=== PATIENT | female | born 1965 | race Two or more races ===

== ENCOUNTER → 2021-06-11 | Outpatient (CLI) | payer BC, OTHER ==
[2021-06-11 18:27] LABS: Basophils # (A) 0.03 X 10*3/uL (0.00-0.10); Basophils % (A) 0.5 %; Eosinophils % (A) 1.7 %; HCT 44.6 % (37.2-46.3); HGB 14.3 g/dL (12.0-15.0); Immature Grans, Automated 0.5 %; Lymphocytes # (A) 1.72 X 10*3/uL (0.90-5.00); Lymphocytes % (A) 29.7 %; MCH 31.7 pg (27.0-32.0); MCHC 32.1 g/dL (32.0-37.0); MCV 98.9 fL (80.0-97.0); Mean Platelet Volume 10.8 fL (9.5-12.2); Monocytes # (A) 0.52 X 10*3/uL (0.20-1.00); NRBC Per 100 WBC 0 /100 WBCS (0.0-0.0); Neutrophils % (A) 58.6 %; Platelet Count 289 X 10*3/uL (140-440); RBC 4.51 X 10*6/uL (4.10-5.20); RDW 11.3 % (11.5-14.5)
[2021-06-11 20:32] LABS: African American GFR (CKD) 125.4 (60.0-200.0); Anion Gap 11.6 mmol/L (10.00-18.00); Blood Urea Nitrogen 13.1 mg/dL (9.0-27.0); Carbon Dioxide 25.4 mmol/L (20.0-27.5); Non-African American GFR(CKD) 108.2 (60.0-200.0); Potassium 4.2 mmol/L (3.5-5.5)
== END | disposition home or self-care (01) ==
LOC: LABPAT 13:30
PROVIDERS: ATTEND Obstetrics & Gynecology Obstetrics
DX: Z01.812 Encounter for preprocedural laboratory examination (principal); Z01.818 Encounter for other preprocedural examination; N85.2 Hypertrophy of uterus; D25.9 Leiomyoma of uterus, unspecified
CPT/HCPCS: 36415; 80051; 82565; 82947; 84520; 85025; 87086

== ENCOUNTER → 2021-07-03 | Outpatient (CLI) | payer BC ==
[2021-07-03 16:15] LABS: African American GFR (CKD) 119.4 (60.0-200.0); Anion Gap 7.5 mmol/L (10.00-18.00); Blood Urea Nitrogen 10.5 mg/dL (9.0-27.0); Carbon Dioxide 26.2 mmol/L (20.0-27.5); Potassium 4.2 mmol/L (3.5-5.5)
[2021-07-03 16:17] LABS: Basophils # (A) 0.03 X 10*3/uL (0.00-0.10); Basophils % (A) 0.7 %; Eosinophils # (A) 0.09 X 10*3/uL (0.04-0.35); Eosinophils % (A) 2.1 %; HCT 41.6 % (37.2-46.3); HGB 13.2 g/dL (12.0-15.0); Immature Grans, Automated 0.5 %; Lymphocytes # (A) 1.55 X 10*3/uL (0.90-5.00); Lymphocytes % (A) 36.6 %; MCH 31.2 pg (27.0-32.0); MCHC 31.7 g/dL (32.0-37.0); MCV 98.3 fL (80.0-97.0); Mean Platelet Volume 10.8 fL (9.5-12.2); Monocytes # (A) 0.37 X 10*3/uL (0.20-1.00); Monocytes % (A) 8.7 %; NRBC Per 100 WBC 0 /100 WBCS (0.0-0.0); Neutrophils # (A) 2.18 X 10*3/uL (1.80-7.70); Neutrophils % (A) 51.4 %; Platelet Count 282 X 10*3/uL (140-440); RBC 4.23 X 10*6/uL (4.10-5.20); RDW 11.3 % (11.5-14.5); WBC 4.24 X 10*3/uL (4.50-10.00)
== END | disposition home or self-care (01) ==
LOC: LABPAT 08:52
PROVIDERS: ATTEND Obstetrics & Gynecology Obstetrics
DX: Z01.812 Encounter for preprocedural laboratory examination (principal); D25.9 Leiomyoma of uterus, unspecified
CPT/HCPCS: 80051; 82565; 82947; 84520; 85025; 87086

== ENCOUNTER 2021-07-13 05:45 | Day surgery (SDC) | payer BC ==
[2021-06-18 09:18] VITALS: BMI 23.8
--- NOTE | 2021-07-12 17:37 | HP ---
HISTORY AND PHYSICAL DATE OF SURGERY: 07/13/2021 HISTORY OF PRESENT ILLNESS: This is a 56-year-old G1, P1 non- female who presents with known enlarged fibroid uterus. The patient has a history of a myomectomy and then a with the of her daughter. The patient notes increasing back pain and abdominal pain. She is postmenopausal since 2018. Patient elects definitive treatment with hysterectomy at this time. PAST MEDICAL HISTORY: No known medical conditions. PAST SURGICAL HISTORY: Significant for a myomectomy and . ALLERGIES: NO KNOWN DRUG ALLERGIES. FAMILY MEDICAL HISTORY: Noncontributory. 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 SOCIAL HISTORY: She is a nonsmoker and is . REVIEW OF SYSTEMS: She denies fevers, chills, nausea, vomiting, urinary urgency, frequency, dysuria or dyspareunia. She does note back pain and pelvic pain. She denies any postmenopausal bleeding symptoms. PHYSICAL EXAMINATION: Vital signs are noted to be stable. GENERAL: This is a well-nourished, well-developed, non- female in no acute distress. Some language barrier is appreciated on history-taking. Her lungs are noted to be clear to auscultation. Her heart has a regular rate and rhythm. ABDOMEN: Soft with an enlarged uterus palpated. On pelvic exam, external genitalia is noted to be normal for age. No masses are appreciated. Vaginal genitalia are noted to be pale and consistent with postmenopause. Cervix is without lesion. Uterus is noted to be enlarged but mobile. ASSESSMENT: Uterine fibroids. Enlarged uterus is noted, 14 to 15 cm, with largest fibroid measuring 4.5 cm. Patient does desire definitive treatment. PLAN: Robotic-assisted vaginal hysterectomy with bilateral salpingo-oophorectomy, diagnostic cystoscopy, possible LELAND to complete procedure. Risks are reviewed with the patient, including but not limited to infection, bleeding, damage to bladder, bowel, ureteric injury, given the size of the uterus. The patient states understanding and wishes to proceed. The patient is with her , who is [place]ian-speaking, so all consent was performed. Will proceed with robotic-assisted vaginal hysterectomy, bilateral salpingo- oophorectomy, diagnostic cystoscopy, possible open to complete procedure. MMODL / IJN: [id number] /
[~2021-07-13 05:45] MED LIST: ACETAMINOPHEN IV (For NPO) 1,000 MG in EMPTY BAG 1 BAG IVPB PRN
[2021-07-13] MEDS ORDERED: HYDROmorphone 0.5 MG/0.5 ML SYRINGE IVP PRN (05:46)
[2021-07-13] MEDS ORDERED: MIDAZOLAM 2 MG/2 ML VIAL IV PRN (05:46)
[2021-07-13] MEDS ORDERED: ONDANSETRON 4 MG/2 ML VIAL IVP ONE (05:46)
[2021-07-13] MEDS ORDERED: LIDOCAINE 1% (10MG/ML) FOR IV START INTRADERMA PRN (05:46)
[2021-07-13] MEDS ORDERED: DEXAMETHASONE SOD PHOSPHATE 4 MG/ML 1 ML VIAL IV ONE (05:46)
[2021-07-13] MEDS: LACTATED RINGERS 1,000 ML IV SCH (06:30)
[2021-07-13] MEDS: ACETAMINOPHEN IV (For NPO) 1,000 MG in EMPTY BAG 1 BAG IVPB PRN ×2 (07:00→15:49)
[2021-07-13] MEDS ORDERED: fentaNYL (PF) 50 MCG/ML 2 ML AMP ONE (07:36)
[2021-07-13] MEDS ORDERED: ROCURONIUM 10 MG/ML (5 ML VIAL) IV ONE (07:36)
[2021-07-13] MEDS ORDERED: LIDOCAINE 4% LTA KIT (4 ML) TOPICAL ONE (07:36)
[2021-07-13] MEDS ORDERED: PROPOFOL 10 MG/ML 20 ML VIAL IV ONE (07:36)
[2021-07-13] MEDS ORDERED: ePHEDrine 50 MG/ML 1 ML VIAL ONE (07:36)
[2021-07-13] MEDS ORDERED: NEOSTIGMINE 1 MG/ML 10 ML VIAL ONE (07:36)
[2021-07-13] MEDS ORDERED: LIDOCAINE 2% INJ 20 MG/ML (2 ML VIAL) ONE (07:36)
[2021-07-13] MEDS ORDERED: HYDROmorphone (PF) 1 MG/ML ONE (07:36)
[2021-07-13] MEDS ORDERED: GLYCOPYRROLATE 0.2 MG/ML 2 ML VIAL ONE (07:36)
[2021-07-13] MEDS ORDERED: SUCCINYLCHOLINE CHLORIDE 100 MG/5 ML SYR IV ONE (07:36)
[2021-07-13] MEDS ORDERED: MIDAZOLAM 2 MG/2 ML VIAL ONE (07:36)
[2021-07-13] MEDS ORDERED: BUPIVACAINE (PF) 0.25% 30 ML VIAL SQ ONE ×2 (08:30)
[2021-07-13] MEDS ORDERED: LACTATED RINGERS 1,000 ML IV ONE (09:30)
[2021-07-13] MEDS ORDERED: SIMETHICONE 80 MG CHEWABLE PO PRN (10:31)
[2021-07-13] MEDS ORDERED: Acetaminophen-Codeine 300-30mg TAB PO PRN ×2 (10:31)
[2021-07-13] MEDS ORDERED: IBUPROFEN 600 MG TAB PO PRN (10:31)
--- NOTE | 2021-07-13 10:40 | P.OP ---
Date of Procedure: 07/13/21 Preoperative Diagnosis: Enlarged uterus, uterine fibroids, low back pain, pelvic pain Postoperative Diagnosis: Same Procedure(s) Performed: Robotic cyst vaginal hysterectomy with bilateral salpingo-oophorectomy, diagnostic cystoscopy, lysis of adhesions Anesthesia: PRECIOUS Surgeon: Yajaira Be Felt Cutting Machine Operator #1: Frida Byrnes Estimated Blood Loss (ml): 250 IV fluids (ml): 1,300 Urine output (ml): 200 Pathology: other (Uterus, multiple fibroids, bilateral fallopian tubes and ovar ies) Condition: stable Disposition: PACU Indications for Procedure: Significantly enlarged uterus with multiple fibroids Operative Findings: Grossly enlarged irregular mobile uterus with multiple fibroids omental adhesions noted anteriorly Description of Procedure: Patient was taken back to the operating suite where general anesthesia was obtained without difficulty by the anesthesia department. She was prepped and draped in normal sterile fashion in the dorsal lithotomy position. A Garrido catheter was placed under sterile technique. A weighted speculum was placed in the posterior vaginal vault the anterior lip of the cervix was visualized and grasped with a single-tooth tenaculum, the endocervical canal was then serially dilated. The V care manipulator was advanced into the uterus as a means to miniplate the uterus during the procedure, approximately 10 mL of air were used to inflate the balloon of the V care. At this time all instruments were removed from the patient's vaginal vault and the cervical cap was placed snugly against the cervix. The uterus was noted to be mobile with the cup in place. Attention was then turned the patient's abdomen where approximately 2 finger breaths above the umbilicus a small skin incision is made. Through this incision the Veress needle is placed, once the Veress needle was deemed to be in the proper position with a drop of CO2 pressure with insufflation of CO2 gas CO2 insufflation was allowed to occur. The 8 mm da Anali trocar was then placed through the skin incision with the laparoscope in place and toward the pneumoperitoneum. The above-noted findings are visualized. At this time the additional port sites are placed 10 cm lateral and 3 segments in. In the midline port these are 8 mm ports and placed under direct visualization. In the left upper quadrant a 12 mm trocar and sleeve is placed under direct visualization. At this time the da Anali robot was docked in the usual fashion. In the right operative arm the monopolar scissors is placed in the left operative arm the bipolar forceps is placed. The uterus is elevated the left infundibulopelvic ligament is visualized but omental adhesions are noted to the left cornu therefore sharp dissection is performed. Hemostasis was appreciated afterwards. The left IP was coagulated distally and proximally and divided. Hemostasis was appreciated. This continued through the broad around a broad ligament fibroid hemostasis was appreciated. The round ligament was visualized coagulated distally and proximally and divided. The bladder flap from the left was created using sharp and blunt dissection. The ascending branch the uterine artery was visualized coagulated and transected. Attention was then turned to the patient's right infundibulopelvic ligament which was visualized coagulated and transected this continued through the broad ligament toward the round which is coagulated and transected. The bladder flap from the right was easily visualized and created using sharp and blunt dissection. The ascending branch of the uterine artery from the right was visualized coagulated and transected. At this time a Ray-Whitney was placed into the abdomen to further dissect the bladder away from the operating field, it was removed afterwards. A small amount of bleeding was noted on the left uterocervical junction it was grasped with a [place] forceps and hemostasis was appreciated. At this time the only remaining attachment was a vaginal attachment therefore colpotomy incision was made in a circumferential fashion. The uterus was quite enlarged and therefore needed to be transected multiple times to be delivered through the vaginal vault. 2 large fibroids were removed placed in Endo Catch bags and out of the operating field. The uterus was then transected into 3 additional pieces to be removed from the vaginal cuff. After all pieces were removed the pelvis was then copiously irrigated and hemostasis was noted. The vaginal cuff was then closed with [id number] sutures of 0 Vicryl. Approximate 5 sutures sutures were used to obtain closure. Hemostasis was noted once again. The upper abdomen is explored and found to be normal in nature. The appendix was visualized and found to be normal. At this time the instrument removed from the patient's abdomen and the da Anali was undocked in usual fashion. Attention was then turned the patient's Garrido catheter which was removed without difficulty. Clear yellow urine was noted in the tubing. The cystoscope was placed through the urethra and toward the bladder bladder bubble was appreciated for both ureteral orifices were noted to be spilling clear yellow urine. The cystoscope was removed and the Garrido catheter was replaced. The vaginal vault was cleared of any clots. No lacerations were appreciated on inspection the patient's vaginal vault. The skin incisions were then closed with 4-0 Vicryl in a subcuticular fashion Steri-Strips and sterile dressings were applied. All counts were noted to be correct 2 at the end of the procedure. Patient tolerated procedure well and was taken the recovery room awake in stable condition.
[2021-07-13] MEDS ORDERED: IBUPROFEN IV 800 MG in SODIUM CHLORIDE 0.9% 250 ML IV ONE (12:00)
[2021-07-13 13:53] VITALS: RESP 16
[2021-07-13] MEDS: SENNOSIDES-DOCUSATE SODIUM 1 EACH TAB PO SCH (22:40)
[2021-07-14 07:39] LABS: Basophils % (A) 0 %; Eosinophils % (A) 0 %; HCT 35.4 % (34.0-46.0); HGB 11.6 gm/dL (11.4-16.0); Lymphocytes # (A) 1.4 k/uL (1.0-4.8); Lymphocytes % (A) 17 %; MCHC 32.7 g/dL (31.0-37.0); MCV 98.1 fL (80.0-100.0); Mean Platelet Volume 7.7; Monocytes # (A) 0.5 k/uL (0-1.0); Monocytes % (A) 6 %; Neutrophils # (A) 6.1 k/uL (1.3-7.7); Neutrophils % (A) 75 %; Platelet Count 221 k/uL (150-450); RBC 3.61 m/uL (3.80-5.40); RDW 11.4 % (11.5-15.5); WBC 8.2 k/uL (3.8-10.6)
[2021-07-14] MEDS: LACTATED RINGERS 1,000 ML IV SCH (08:30)
[2021-07-14 08:34] VITALS: BP 99/66; PULSE 72; TEMP 98.6
--- NOTE | 2021-07-14 08:50 | P.DS ---
Providers Date of admission: 07/13/2021 Expected date of discharge: 07/14/21 Attending physician: Yajiara Be Primary care physician: Stated None - Discharge Diagnosis(es) (1) Uterine fibroid Current Visit: Yes Status: Acute (2) Enlarged uterus Current Visit: Yes Status: Acute (3) Back pain Current Visit: Yes Status: Acute (4) Pelvic pain Current Visit: Yes Status: Acute Hospital Course: 56-year-old female that presents with known enlarged uterus, uterine fibroids, back and pelvic pain. Ultrasound was completed revealing an enlarged uterus approximately 15 cm, largest fibroid measuring 4 cm. Patient had been seen in the office and desired definitive treatment with robotic assist vaginal hysterotomy, bilateral salpingo-oophorectomy, diagnostic cystoscopy. Patient was admitted to the hospital taken back to the operating suite. Robotic- assisted vaginal hysterotomy was performed without difficulty for full details on the surgery please see the operative report. Uterus noted to be grossly enlarged with multiple uterine fibroids. Patient's postoperative course has so far been uneventful. She is ambulating without difficulty. She is tolerating clear liquids without nausea or vomiting. She states her pain is controlled. She would like discharge home after spontaneous void. Patient Condition at Discharge: Good Plan - Discharge Summary Discharge Rx Participant: No New Discharge Prescriptions: No Action No Known Home Medications Discharge Medication List No Known Home Medications 06/18/21 [History] Follow up Appointment(s)/Referral(s): Yajaira Be DO [Doctor of Osteopathic Medicine] - 4 Weeks Patient Instructions/Handouts: Laparoscopic Hysterectomy (DC), Laparoscopic Hysterectomy (GEN) Activity/Diet/Wound Care/Special Instructions: Patient can expect some menstrual-like bleeding postoperatively. [id number] ibuprofen and Tylenol for pain. Patient is encouraged to take stool softeners senna-2 by mouth daily at bedtime. Discharge Disposition: HOME SELF-CARE
[2021-07-14] MEDS: SENNOSIDES-DOCUSATE SODIUM 1 EACH TAB PO SCH (10:12)
[2021-07-14] MEDS ORDERED: ACETAMINOPHEN TAB 325 MG TAB PO PRN (10:32)
== END 2021-07-14 11:30 | disposition home or self-care (01) ==
LOC: OR 05:45 → 4FBP 10:55 → OR 07-14 11:30
PROVIDERS: ATTEND Obstetrics & Gynecology Obstetrics
DX: D25.9 Leiomyoma of uterus, unspecified (principal); N87.9 Dysplasia of cervix uteri, unspecified; N83.209 Unspecified ovarian cyst, unspecified side; Z98.891 History of uterine scar from previous surgery; Z98.890 Other specified postprocedural states
CPT/HCPCS: 58573; S2900; 81025; 85025; 86850; 86900; 86901; 88307